=== PATIENT | female | born 1995 | race Caucasian/White ===

== ENCOUNTER 2016-06-29 11:20 | Emergency (ER) | payer OTHER ==
[~2016-06-29] VITALS: Ht 157.5 cm; Wt 56.8 kg
[2016-06-29 11:22] VITALS: BP 117/79; PULSE 98; RESP 26; O2SAT 99
--- NOTE | 2016-06-29 12:22 | ED.REPORT ---
HPI-Dental/Mouth Prob Date of Service Jun 29, 2016 ED Provider: Aubrey Mendoza PA-C Malika is an otherwise healthy 21-year-old female who presents today with chief complaint of dental pain. Patient complains of lower left rear dental pain that began on Monday. She states she is not able to open her mouth all the way or eat solid food. Pain is aggravated by eating. She reports that she awakens in the night feeling as though she cannot breathe. She believes she has an impacted wisdom tooth, though she has not been diagnosed by a dentist. She is having difficulty being seen by a dentist because of her insurance. Has not appointment for the middle of July. Attempting to treat it with 800 mg ibuprofen to little effect. Denies fever, chills, vomiting, diarrhea. Nursing Notes Stated Complaint: DENTAL PAIN Chief Complaint: Dental Nursing Notes Reviewed: Yes Allergies: Coded Allergies: No Known Allergies (Verified Allergy, Unknown, 06/29/16) Scheduled PRN Hydrocodone-Acetaminophen 5-325 mg (Hydrocodone-Acetaminophen 5-325 mg) 1 Each Tablet 1-2 TABLET PO Q4H PRN PRN For Pain General Time Seen by MD: 11:47 Chief Complaint Mouth pain Past Medical History Past Medical History Eczema Migraine headaches Strep throat Smoking History Current Some Day Smoker Social History Alcohol Use: "Social" Other Social History: Local resident Ambulatory Status Independent Review of Systems Negative unless stated otherwise in the history of present illness Physical Exam General: Well developed, well nourished, no acute distress. Head: Atraumatic, normocephalic. No mastoid tenderness. Eyes: No scleral icterus or injection. No discharge. PERRL. Vision grossly intact. Ears: Pinna and tragus nontender with manipulation. External auditory canal patent, atraumatic and without discharge. Tympanic membrane moon, shiny and translucent without fluid, bulging, retraction or perforation. Hearing grossly intact. Nose: Symmetrical, nares patent without discharge. No frontal or maxillary sinus tenderness. Mouth/pharynx: Patient has difficulty opening mouth. There is inflammation posterior to the 17th tooth and a small area that could be a wisdom tooth erupting. No discharge. Mild swelling but no redness noted over her parotid and submandibular gland. No abscess appreciated.. Tonsils 2+ and symmetrical, uvula midline. Pharynx noninjected, no cobblestoning or discharge. Voice clear. Neck: Tenderness left submandibular. No lymphadenopathy. Trachea midline. Skin: Warm and dry. Neurological: Grossly nonfocal. Psychological: alert and oriented. Speech appropriate, linear and logical. Behavior appropriate. Initial Vital Signs Vital Signs (First) Date Time Temp Pulse Resp B/P Pulse Ox O2 Delivery O2 Flow Rate FiO2 06/29/16 11:22 36 98 26 117/79 99 Room Air Initial VS: Reviewed Re-Eval/Medical Decision Med Decision/Clinical Course Discussed the case with Dr. guillaume Brown, who examined the patient. Discharge & Departure Primary Impression: Pain, dental Disposition: Home Discharge Condition All VS Reviewed: Yes Condition: Stable Additional Instructions: Evaluation for dental pain emergency room department today. History and physical are reassuring that this is unlikely to be infection. No indication that this is a dangerous condition such as Blade angina or peritonsillar abscess. Stable and safe for discharge to home. Your pain could be caused by the emergence of a wisdom tooth on the lower left side. Contact your dentist immediately and try to arrange an earlier appointment. We do not see any indication for antibiotics at this time. Treatment is symptomatic. Continue taking 400 mg ibuprofen every 6 hours. I will write a prescription for a small amount of a stronger, narcotic painkiller for more severe pain. Do not drive, operate heavy machinery or drink alcohol while taking this medication. Continue using topical painkillers as you have been. Follow up with your primary care physician if you are unable to see her dentist sooner, or return to emergency department for any new or worsening symptoms including fever, difficulty breathing or swallowing, increasing redness, swelling or pain. Referrals: Verona Tomlin MD (PCP) EDSupervising Provider for APC: Uriah Mascorro MD Attending Statement Attending attestation: I saw this patient in conjunction with the above named MLP. I was present for all rubio portions of the history taking and physical examination. I agree with the workup, evaluation, treatment and disposition. Uriah Mascorro MD copies to: Verona Tomlin MD, Seth PA-C Jun 29, 2016 12:22 Uriah Mascorro MD Jun 29, 2016 19:05
[2016-06-29] MEDS ORDERED: HYDR-4003 PO (12:23)
== END 2016-06-29 12:38 | disposition home or self-care (01) ==
LOC: SED 11:20
DX: K08.89 Other specified disorders of teeth and supporting structures (principal); F17.200 Nicotine dependence, unspecified, uncomplicated